=== PATIENT | male | born 1980 | race Caucasian/White ===

== ENCOUNTER 2023-06-25 19:47 | Inpatient (IN) | payer BC, SELFPAY ==
--- NOTE | ~2023-06-25 | XR_ITS ---
EXAMINATION: XR abdomen obstructive series DATE: 06/29/2023 12:44 INDICATION: Constipation. Generalized abdominal pain. TECHNIQUE: Upright and supine views of the abdomen on 4 radiographs were obtained. COMPARISON: CT abdomen and pelvis 06/25/2023 FINDINGS: There are no dilated loops of bowel. There is a small volume of stool in the colon. No free intraperitoneal gas. There are airspace opacities at right lung base. IMPRESSION: 1. Normal bowel gas pattern. 2. Airspace opacities at right lung base, consistent with atelectasis versus pneumonia. Reviewed, dictated and finalized at location A. S HUNTER IMPRESSION: 1. Normal bowel gas pattern. 2. Airspace opacities at right lung base, consistent with atelectasis versus pn eumonia.
--- NOTE | ~2023-06-25 | CT_ITS ---
EXAMINATION: CT abdomen pelvis w con DATE: 06/25/2023 22:16 INDICATION: Low abdominal pain. Flank pain. TECHNIQUE: Computed tomography (CT) of the abdomen and pelvis was performed with 100 mL Omnipaque 350 intravenous contrast. Automated exposure control and iterative reconstruction technique were employe d. The dose-length product was 1098.88 mGy-cm. COMPARISON: None. FINDINGS: The visualized portions of the lung bases demonstrate calcified lung nodules and calcified hilar lymph nodes, consistent with old granulomatous disease. There is a small right pleural effusion . There is mild atelectasis bilaterally. The heart size is normal. No pericardial effusion. The liver , gallbladder, spleen, pancreas, adrenal glands, and kidneys are normal. There is a large volume of s tool in the ascending colon. The appendix measures 8 mm in diameter. There is mild fat stranding jade cent to the appendix. There is intraluminal gas in the tip of the appendix. There are bilateral ingui nal hernias containing fat. There are no pathologically enlarged lymph nodes. There is no free intrap eritoneal fluid. IMPRESSION: 1. Small right pleural effusion. 2. Appendiceal diameter of 8 mm with mild fat stranding adjacent to the appendix, which is indetermin ate for appendicitis. Reviewed, dictated and finalized at location E. UGATED SHEET MATERIAL SHEETER IMPRESSION: 1. Small right pleural effusion. 2. Appendiceal diameter of 8 mm with mild fat stranding adjacent to the appendi x, which is indeterminate for appendicitis.
--- NOTE | ~2023-06-25 | XR_ITS ---
EXAMINATION: XR chest 2V DATE: 06/26/2023 11:03 INDICATION: Right pleural effusion TECHNIQUE: AP and lateral views of the chest are obtained. COMPARISON: CT, 06/25/2023 FINDINGS: There are minimal airspace opacities of the right lung base. There is a small right pleural effusion. No pneumothorax is identified. The cardiomediastinal silhouette is normal. There is mild t horacic spondylosis. IMPRESSION: 1. Small right pleural effusion with minimal right basilar atelectasis. Reviewed, dictated and finalized at location B. ING SERVICES MANAGER
[2023-06-25 20:02] VITALS: BP 135/78; PULSE 95; RESP 18; TEMP 37.4; O2SAT 97
[2023-06-25 20:20] LABS: Basophils Percent Auto 0.3 % (0.2-1.2); Hemoglobin 14.1 g/dL (14.0-18.0); Immature Granulocyte Absolute 0.05 K/mm3 (0.00-0.031); Immature Granulocyte Percent A 0.4 % (0-0.5); Lymphocytes Percent Auto 8.5 % (18.3-44.2); Mean Corpuscular Hemoglobin 29.3 pg (26-34); Mean Corpuscular Volume 91.3 fl (80-100); Mean Platelet Volume 9.6 fl (7.4-10.4); Monocytes Absolute Auto 0.8 K/mm3 (0.1-0.6); Monocytes Percent Auto 6.4 % (2.6-8.5); Neutrophils Absolute Auto 10.9 K/mm3 (1.3-6.7); Neutrophils Percent Auto 84.4 % (45.5-73.1); Platelet Count Result 301 k/mm3 (150-375); Red Blood Count 4.82 M/mm3 (4.6-6.20); Red Cell Distribution Width 11.9 % (11.5-14.5); White Blood Count 12.9 K/mm3 (4.5-10.0)
[2023-06-25 20:31] LABS: Alanine Aminotransferase 27 U/L (6-50); Albumin Level 4.2 g/dL (3.5-5.1); Alkaline Phosphatase 106 U/L (38-126); Anion Gap 10 mmol/L (8-16); Aspartate Amino Transferase 30 U/L (17-59); Bilirubin,Total 0.9 mg/dL (0.2-1.3); Blood Urea Nitrogen 16 mg/dL (9-20); Calcium 9.6 mg/dL (8.4-10.2); Carbon Dioxide 29 mmol/L (22-30); Chloride 100 mmol/L (98-107); Estimated CRCL calculation 125 ml/min; Estimated Glomerular Filt Rate > 60; Glucose 113 mg/dL (65-110); Potassium 4.1 mmol/L (3.4-5.0); Sodium 139 mmol/L (137-145)
[2023-06-25 20:36] LABS: Appearance Urine Cloudy (Clear); Bacteria Urine None Seen /hpf; Bilirubin Urine Negative (Negative); Blood Urine Negative (Negative); Color Urine Dark Yellow (Yellow); Glucose Urine UA Negative (Negative); Ketones Urine 2+ mg/dL (Negative); Leukocyte Esterase Ur Negative LEU/UL (Negative); Mucus Urine Present /lpf; Need Manual Microscopic Reviewed; Nitrate Urine Negative (Negative); Protein Urine Trace mg/dL (Negative); RBC Urine 0-2 /hpf (0-2); Specific Grav Ur 1.035 (1.001-1.035); Squamous Epithelial Cell Urine Few /hpf (Few); WBC Urine 0-5 /hpf; pH Urine 5.5 (5.0-9.0)
[2023-06-25 20:37] LABS: Add Urine Microscopic? YES
--- NOTE | 2023-06-25 21:35 | ED.GENADULT ---
HPI - General Adult General Chief complaint: Urogenital-Male Stated complaint: flank pain Time Seen by Provider: 06/25/23 20:18 Source: patient Mode of arrival: ambulatory Limitations: no limitations History of Present Illness HPI narrative: This is a 42-year-old male who presents to the ED with chief complaint of lower abdominal pain and lower back pain bilaterally for the past couple of weeks. Reports he was initially seen in urgent care and given prescriptions for muscle relaxers and steroids after possible pulled muscle. He states this seemed to help initially but pain is returning in the last couple of days. Describes the pain as a tightness across the lower abdomen that wraps around into the back bilaterally. Reports the right side of the lower back seems worse. States that he has not had a bowel movement in 2 days and is unsure if this is related. Denies slight difficulty with urination no dysuria, hematuria. Denies fevers, chills, nausea, vomiting, diarrhea, chest pain, shortness of breath, neck pain, headache. Related Data Allergies Allergy/AdvReac Type Severity Reaction Status Date / Time amoxicillin Allergy Rash Verified 06/25/23 20:20 Review of Systems Review of Systems: All systems as dictated in HPI Exam Narrative: GENERAL: Well-appearing, well-nourished, and in no acute distress. HEAD: Normocephalic, atraumatic. EYES: PERRLA and EOMI. ENT: Nares clear, no rhinorrhea or epistaxis. Mucous membranes moist. Oropharynx without tonsillar hypertrophy exudate or other lesions. NECK: Supple. No adenopathy or masses. CHEST: No respiratory distress. Clear to auscultation. No wheezes rales or rhonchi HEART: Regular rate and rhythm. No murmur heard. Normal peripheral pulses. ABDOMEN: Negative flank tenderness bilaterally. Mild tenderness across the lower abdomen. Soft, nondistended, normal active bowel sounds. Negative Sosa sign. Obturator sign positive. MSK: Difficulty with transitioning from chair to bed due to pain. He moves slowly. Bilateral paraspinal lumbar tenderness noted. No midline tenderness throughout the spine. SKIN: Warm, dry, no rash. NEURO: Alert and oriented x3. No focal deficits. PSYCH: Normal mood and affect. Course Vital Signs Vital signs: Vital Signs Temperature 99.3 F 06/25/23 20:02 Pulse Rate 95 06/25/23 20:02 Respiratory Rate 18 06/25/23 20:02 Blood Pressure 135/78 06/25/23 20:02 Pulse Oximetry 97 06/25/23 20:02 Oxygen Delivery Room Air 06/25/23 20:02 Temperature 99.3 F 06/25/23 20:02 Pulse Rate 95 06/25/23 20:02 Respiratory Rate 18 06/25/23 20:02 Blood Pressure 135/78 06/25/23 20:02 Pulse Oximetry 97 06/25/23 20:02 Oxygen Delivery Room Air 06/25/23 20:02 Medical Decision Making MDM Narrative Medical decision making narrative: This is a 42-year-old male who presents to the ED with chief complaint of lower abdominal pain for the past week and a half and worse in the past 2 days. Vitals are largely benign, however his temperature is slightly elevated at 99.5. Exam reveals lower abdominal tenderness across the abdomen. Abdomen is soft. Obturator sign positive. CBC shows slightly elevated white count at 13,000. CMP unremarkable. UA shows 2+ ketones but otherwise benign. CT abdomen pelvis with IV contrast: 1. Small right pleural effusion. 2. Appendiceal diameter of 8 mm with mild fat stranding adjacent to the appendix, which is indeterminate for appendicitis.. Patient is doing better with morphine and Zofran here but he is still in pain. Discussed this case with Dr. Rm (general surgery) who agrees to admit the patient under surgical services. Recommends keeping patient n.p.o. and starting Invanz for antibiotics. He will see the patient tomorrow. Exam is unchanged at the time of admission. Patient will be admitted in stable condition. Patient was informed on the plan and he is agreeable at this time. Vital Sign
[2023-06-25] MEDS: ONDANSETRON INJ 4 MG/2 ML VIAL IV PUSH (21:47)
[2023-06-25] MEDS: MORPHINE SULFATE (*CRX) 4 MG/ML INJ IV PUSH (21:48)
[2023-06-25 21:58] LABS: Lipase 62 U/L (23-300)
[2023-06-25] MEDS: ERTAPENEM 1 GM/NS 50 ML 1 GM/50 ML BAG IVPB (23:00)
[2023-06-26] VITALS (8 sets, daily range): BP systolic 135–148; BP diastolic 73–82; PULSE 87–107; RESP 15–22; TEMP 37.1–37.3; O2SAT 95–100; BMI 33.0
[2023-06-26] MEDS: SODIUM CHLORIDE 0.9% IV 1,000 ML 125 ML IV CONT ×3 (00:54→21:00)
[2023-06-26] MEDS: HYDROmorphone HCL INJ (*CRX) 1 MG/ML SYR 0.5 MG IV PUSH ×4 (00:54→13:34)
--- NOTE | 2023-06-26 05:37 | ADMGEN ---
This patient, Wellington Palomo, was admitted to [facility] Surg Room 316-01. Patient/family oriented to hospital policies and general routines including ID bracelet, bed and alarms, visiting hours, pain management, procedures, bathroom and other care routines, personal items, smoking policy, room service/diet, and visiting hours. Information on how to activate the Rapid Response Team has been discussed. Patient/Family are encouraged to report perceived risks to care and to ask questions if they do not understand what they are told or what they should do.
[2023-06-26 09:58] LABS: Hematocrit 41.3 % (42.0-52.0); Hemoglobin 13.4 g/dL (14.0-18.0); Mean Corpuscular HGB Conc 32.4 g/dl (32-36); Mean Corpuscular Hemoglobin 29.5 pg (26-34); Mean Platelet Volume 9.9 fl (7.4-10.4); Platelet Count Result 259 k/mm3 (150-375); Red Blood Count 4.54 M/mm3 (4.6-6.20)
[2023-06-26 10:13] LABS: Alanine Aminotransferase 23 U/L (6-50); Albumin Level 3.9 g/dL (3.5-5.1); Alkaline Phosphatase 94 U/L (38-126); Anion Gap 8 mmol/L (8-16); Aspartate Amino Transferase 20 U/L (17-59); Bilirubin,Total 0.9 mg/dL (0.2-1.3); Blood Urea Nitrogen 14 mg/dL (9-20); Carbon Dioxide 28 mmol/L (22-30); Chloride 102 mmol/L (98-107); Estimated CRCL calculation 158 ml/min; Estimated Glomerular Filt Rate > 60; Glucose 115 mg/dL (65-110); Lipase 39 U/L (23-300); Sodium 138 mmol/L (137-145)
[2023-06-26 10:23] LABS: CRP 18.7 mg/dL (<1.0)
[2023-06-26 10:38] LABS: Erythrocyte Sedimentation Rate 76 mm/hr (0-20)
--- NOTE | 2023-06-26 10:47 | PM.IMHP ---
H&P: HPI History of Present Illness Date/Time: 06/26/23 10:47 Chief Complaint: Back pain, RLQ pain Narrative: This is a 42 yo man who presented to the ED last night with multiple complaints. He began experiencing low back pain about 3 weeks ago. This was noted shortly after completing a workout at the gym. Over the next couple days the low back pain became worse. He went to urgent care and was given muscle relaxers and steroids. He was constipated at that time and went 9 days without a BM. Since Thursday, he began experiencing lower abdominal pain as well. The pain has been on both sides of the back, but more predominantly on the right side of the abdomen. Pain is radiating up toward the right chest and he does have worsening pain with deep inspiration. He denies cough, fever, nausea or vomiting. He did move his bowels for a few days but now it has been another 2-3 days since his last BM. In the ED, he was noted to have a slightly elevated WBC and CT showed an 8mm Appendix with mild surrounding fatty infiltration, indeterminant for acute appendicitis. He was started on Invanz and admitted for further workup and treatment. Review of Systems Review of Systems: All systems reviewed & are unremarkable except as noted in HPI and below Constitutional: Constitutional: Denies chills and Denies fever(s) Eyes: Eyes: Denies change in vision ENT: Denies hearing loss, Denies neck pain and Denies sore throat Cardiovascular: Cardiovascular: Denies chest pain and Denies dyspnea Respiratory: Respiratory: Denies cough, Denies dyspnea and Denies wheezing Gastrointestinal: Gastrointestinal: Reports as per HPI Genitourinary: Genitourinary: Denies hematuria and Denies dysuria Musculoskeletal: Musculoskeletal: Reports back pain (low back), Denies arthralgias, Denies joint swelling and Denies neck pain Allergic/Immunologic: Allergic/Immunologic: Denies wheezing PMFSH Past Medical History Medical History (Updated 06/26/23 @ 11:20 by Ravi Rm DO) No significant past medical history Surgical History Surgical History (Updated 06/26/23 @ 10:55 by Ravi Rm DO) No pertinent past surgical history Social History Social History Smoking status: Never smoker Lack of Transportation: No Lack of Food: Never True Current Housing: I Have Housing Concerned About Future Housing: No Difficulty Paying Gas/Electric Bills: No Difficulty Paying for Meds: No Currently Unemployed: No Education: High School Diploma/GED Difficulty w/ Childcare or Family Care: No Spiritual care concerns: No Meds Home Medications and Allergies Home Medications Medication Instructions Recorded Confirmed Type cetirizine 10 mg tablet (Zyrtec) 10 mg PO DAILY seasonal allergies 06/26/23 06/26/23 History Allergies Allergy/AdvReac Type Severity Reaction Status Date / Time amoxicillin Allergy Rash Verified 06/25/23 20:20 Vital Signs Vital Signs - 24 hr 06/25/23 20:02 06/26/23 01:00 06/26/23 02:15 Temperature 37.4 C Pulse Rate 95 87 90 Respiratory Rate 18 15 15 Blood Pressure 135/78 135/80 137/80 Pulse Oximetry 97 100 98 Oxygen Delivery Room Air 06/26/23 03:28 06/26/23 05:08 06/26/23 06:00 Temperature 37.3 C Pulse Rate 95 93 101 H Respiratory Rate 16 16 16 Blood Pressure 140/79 140/79 148/82 H Pulse Oximetry 95 95 96 Oxygen Delivery Exam Const: General: alert; No acute distress Orientation/consciousness: patient oriented x3 Limitations: no limitations HENMT: Head: normocephalic and atraumatic Ears: hearing grossly normal bilaterally Face/Nose/Sinus: Normal external nose present and Normal nares present Mouth: Yes Normal oral and palatal mucosa present and Yes moist mucous membranes Eyes: General: appearance normal, both eyes and all related structures Conjunctivae: conjunctivae normal Sclera: sclerae normal Pupils: Eq
[2023-06-26] MEDS: polyethylene glycoL 3350 17 GM POWD.PACK PO (11:57)
[2023-06-26] MEDS: BISACODYL 5 MG TABLET EC 10 MG PO (11:57)
--- NOTE | 2023-06-26 15:41 | PM.IMHP ---
H&P: HPI History of Present Illness Date/Time: 06/26/23 15:00 [facility] Past Medical History Medical History (Updated 06/26/23 @ 11:20 by Ravi Rm DO) No significant past medical history Surgical History Surgical History (Updated 06/26/23 @ 15:41 by Quin Pratt PA-C) History of vasectomy Social History Social History Smoking status: Never smoker Lack of Transportation: No Lack of Food: Never True Current Housing: I Have Housing Concerned About Future Housing: No Difficulty Paying Gas/Electric Bills: No Difficulty Paying for Meds: No Currently Unemployed: No Education: High School Diploma/GED Difficulty w/ Childcare or Family Care: No Spiritual care concerns: No Meds Home Medications and Allergies Home Medications Medication Instructions Recorded Confirmed Type cetirizine 10 mg tablet (Zyrtec) 10 mg PO DAILY seasonal allergies 06/26/23 06/26/23 History Allergies Allergy/AdvReac Type Severity Reaction Status Date / Time amoxicillin Allergy Rash Verified 06/25/23 20:20 Vital Signs Vital Signs - 24 hr 06/25/23 20:02 06/26/23 01:00 06/26/23 02:15 Temperature 99.3 F Pulse Rate 95 87 90 Respiratory Rate 18 15 15 Blood Pressure 135/78 135/80 137/80 Pulse Oximetry 97 100 98 Oxygen Delivery Room Air 06/26/23 03:28 06/26/23 05:08 06/26/23 06:00 Temperature 99.1 F Pulse Rate 95 93 101 H Respiratory Rate 16 16 16 Blood Pressure 140/79 140/79 148/82 H Pulse Oximetry 95 95 96 Oxygen Delivery 06/26/23 08:00 06/26/23 14:00 Temperature 99.1 F Pulse Rate 95 Respiratory Rate 16 Blood Pressure 143/73 H Pulse Oximetry 98 Oxygen Delivery Room Air H&P: Results Labs Labs: Short CBC 06/25/23 06/26/23 Range/Units 20:13 09:51 WBC 12.9 H 12.0 H (4.5-10.0) K/mm3 Hgb 14.1 13.4 L (14.0-18.0) g/dL Hct 44.0 41.3 L (42.0-52.0) % Plt Count 301 259 (150-375) k/mm3 BMP 06/25/23 06/26/23 20:13 09:51 Sodium 139 138 Potassium 4.1 4.0 Chloride 100 102 Carbon Dioxide 29 28 BUN 16 14 Creatinine 0.90 0.70 Glucose 113 H 115 H Calcium 9.6 9.0 Liver Function 06/25/23 06/26/23 Range/Units 20:13 09:51 Total Bilirubin 0.9 0.9 (0.2-1.3) mg/dL AST 30 20 (17-59) U/L ALT 27 23 (6-50) U/L Alkaline Phosphatase 106 94 (38-126) U/L Albumin 4.2 3.9 (3.5-5.1) g/dL Urine 06/25/23 Range/Units 20:18 Urine Color Dark yellow (Yellow) Urine Appearance Cloudy H (Clear) Urine pH 5.5 (5.0-9.0) Ur Specific [place] 1.035 (1.001-1.035) Urine Protein Trace (Negative) mg/dL Urine Glucose (UA) Negative (Negative) mg/dL
[2023-06-26] MEDS: HYDROmorphone HCL INJ (*CRX) 1 MG/ML SYR IV PUSH ×2 (15:51→20:06)
[2023-06-26] MEDS: BISACODYL 10 MG SUPPOSITORY RECTAL (15:53)
[2023-06-26] MEDS: diazePAM (*CRX) 5 MG TABLET PO ×2 (15:56→20:21)
[2023-06-26] MEDS: ERTAPENEM 1 GM/NS 50 ML 1 GM/50 ML BAG IVPB (20:05)
--- NOTE | 2023-06-26 23:35 | WPDCN ---
Assessment and Plan Assessment and plan (1) Lower abdominal pain: Code(s): R10.30 - Lower abdominal pain, unspecified Status: Acute Assessment and Plan: Likely due to a combination of constipation (he has not had a good bowel movement for nearly 10 days and a large amount of stool was noted in the colon on CT) and possible early appendicitis. Analgesics available as needed however we did discuss that these can worsen constipation and hopefully these can be used very judiciously. Continue MiraLax and bisacodyl. If no bowel movement by tomorrow afternoon he may very well benefit from an enema. Continue ertapenem for possible appendicitis and serial abdominal exams. (2) Low back pain: Qualifiers: Chronicity: acute Back pain laterality: bilateral Sciatica presence: unspecified whether sciatica present Qualified Code(s): M54.50 - Low back pain, unspecified Code(s): M54.50 - Low back pain, unspecified Status: Acute Assessment and Plan: Patient continues to have pain related to recent lumbar muscle strain. He has no radicular symptoms or findings concerning for cord compression. Diazepam as needed for pain. He would benefit from PT/OT however will hold on that at this time as his abdominal pain is much worse with movement. (3) Constipation: Qualifiers: Constipation type: unspecified constipation type Qualified Code(s): K59.00 - Constipation, unspecified Code(s): K59.00 - Constipation, unspecified Status: Acute Assessment and Plan: Continue MiraLax and Dulcolax as detailed above. Consider enema if no good results by tomorrow afternoon. (4) Pleural effusion, right: Code(s): J90 - Pleural effusion, not elsewhere classified Status: Acute Assessment and Plan: An incidental, small right pleural effusion was noted on CT. Etiology is not entirely clear but he is asymptomatic and the fluid is not large enough to sample. This can be followed as an outpatient with suggested repeat radiographs in the coming weeks. Should he become symptomatic (chest pain, pleuritic pain, shortness a breath, cough, etc.) a chest CT may be beneficial as would diagnostic thoracentesis. Plan Thank you for allowing us to participate in this patient's care. Please do not hesitate to contact us with any questions. HPI Data of Consult Date/Time: 06/26/23 23:35 Requesting Physician: Ravi Rm DO Consult Narrative Reason for consult: Back and abdominal pain. Narrative: This is a very pleasant and previously healthy 42-year-old male whom the hospitalist service has been consulted for our opinion regarding back and abdominal pain. The patient provides the following history. Several weeks ago he was seen at urgent care with low back pain at which time he was prescribed muscle relaxer and a steroid pack. 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 The pain eventually improved however he started having problems with constipation and did not have a bowel movement for upwards of 9 days. Since that time he has had increasing pain, mainly throughout the lower abdomen however it does wrap around to the low back. He has been taking ibuprofen for the discomfort which seems to help. He has been taking p.o. Dulcolax with only minor results couple of days ago. This evening he was given a suppository and he has passed quite a bit of gas but he has not had a bowel movement as of yet. In any event, he came to the ED last night due to worsening pain which has been pretty constant for the last several days. He describes a severe spasm or ?locked up? pain diffusely throughout the low back with discomfort throughout the lower abdomen as well. His low back pain is worse with movement and his abdominal pain is worse with bending forward and palpation. Initial workup in the ED was significant
[2023-06-27] MEDS: HYDROmorphone HCL INJ (*CRX) 1 MG/ML SYR IV PUSH ×6 (00:41→23:23)
[2023-06-27 05:44] VITALS: BP 133/70; PULSE 101; RESP 18; TEMP 37; O2SAT 93
[2023-06-27] MEDS: SODIUM CHLORIDE 0.9% IV 1,000 ML 125 ML IV CONT (06:13)
[2023-06-27 06:34] LABS: Basophils Absolute Auto 0.1 K/mm3 (0.0-0.1); Basophils Percent Auto 0.4 % (0.2-1.2); Eosinophils Percent Auto 0.1 % (0-4.4); Hematocrit 40.4 % (42.0-52.0); Hemoglobin 12.8 g/dL (14.0-18.0); Immature Granulocyte Absolute 0.07 K/mm3 (0.00-0.031); Immature Granulocyte Percent A 0.6 % (0-0.5); Lymphocytes Absolute Auto 1.01 K/mm3 (0.9-3.2); Lymphocytes Percent Auto 8.5 % (18.3-44.2); Mean Corpuscular HGB Conc 31.7 g/dl (32-36); Mean Corpuscular Hemoglobin 29.3 pg (26-34); Mean Corpuscular Volume 92.4 fl (80-100); Mean Platelet Volume 9.9 fl (7.4-10.4); Monocytes Absolute Auto 1.2 K/mm3 (0.1-0.6); Neutrophils Absolute Auto 9.6 K/mm3 (1.3-6.7); Neutrophils Percent Auto 80.4 % (45.5-73.1); Platelet Count Result 247 k/mm3 (150-375); Red Blood Count 4.37 M/mm3 (4.6-6.20); Red Cell Distribution Width 11.8 % (11.5-14.5)
[2023-06-27 06:44] LABS: Magnesium 1.9 mg/dL (1.6-2.3)
[2023-06-27 06:48] LABS: Anion Gap 6 mmol/L (8-16); Blood Urea Nitrogen 11 mg/dL (9-20); Calcium 8.6 mg/dL (8.4-10.2); Carbon Dioxide 29 mmol/L (22-30); Chloride 100 mmol/L (98-107); Estimated CRCL calculation 141 ml/min; Estimated Glomerular Filt Rate > 60; Glucose 112 mg/dL (65-110); Potassium 4.2 mmol/L (3.4-5.0); Sodium 135 mmol/L (137-145)
[2023-06-27 06:57] LABS: CRP 23.8 mg/dL (<1.0)
[2023-06-27 07:20] LABS: Thyroid Stimulating Hormone Reflex 0.761 uIU/mL (0.465-4.68)
[2023-06-27] MEDS: polyethylene glycoL 3350 17 GM POWD.PACK PO (08:54)
--- NOTE | 2023-06-27 09:11 | PM.PNGS ---
Progress Note: A&P Assessment and Plan (1) Abdominal pain, acute, right lower quadrant: Code(s): R10.31 - Right lower quadrant pain Status: Acute Assessment and Plan: Seeming less likely to be appendicitis given improvement of symptoms after passing flatus. Continue Invanz at this point. Will give Mag Citrate today to stimulate bowels more. Continue clear liquids until bowels moving better. (2) Constipation: Qualifiers: Constipation type: unspecified constipation type Qualified Code(s): K59.00 - Constipation, unspecified Code(s): K59.00 - Constipation, unspecified Status: Acute (3) Low back pain: Qualifiers: Chronicity: acute Back pain laterality: bilateral Sciatica presence: unspecified whether sciatica present Qualified Code(s): M54.50 - Low back pain, unspecified Code(s): M54.50 - Low back pain, unspecified Status: Acute Subjective Subjective Date/Time Seen: 06/27/23 09:11 Interval history: Abdominal pain improved after passing some flatus. No BM yet. Mostly complaining of low back pain this morning. Diazepam not helping much yet. No pains shooting down legs. Exam GI: Inspection: non-distended GI Palp: Yes Soft to palpation, Yes Tenderness to palpation present (GI) (minimal RLQ), No Guarding due to palpation present (GI) and No Rebound tenderness present Auscultation: normal bowel sounds Objective Data Vital Signs Vital Signs: Vital Signs - 24 hr 06/26/23 14:00 06/26/23 20:00 06/26/23 22:00 Temperature 37.3 C 37.1 C Pulse Rate 95 107 H Respiratory Rate 16 22 H Blood Pressure 143/73 H 135/81 Pulse Oximetry 98 98 96 Oxygen Delivery Room Air 06/27/23 05:44 Temperature 37.0 C Pulse Rate 101 H Respiratory Rate 18 Blood Pressure 133/70 Pulse Oximetry 93 Oxygen Delivery Intake/Output Intake/Output: Intake & Output 06/24/23 06/25/23 06/26/23 06/27/23 23:59 23:59 23:59 23:59 Intake Total 2300 1000 Balance 2300 1000 Meds/Results Medications: Active Medications Generic Name Dose Route Start Last Admin Trade Name Freq PRN Reason Stop Dose Admin Acetaminophen 1,000 mg 06/26/23 14:07 Acetaminophen 500 Mg Tablet PO Q6H PRN Mild Pain (1-3) or Fever Diazepam 5 mg 06/26/23 09:32 06/26/23 20:21 Diazepam (*Crx) 5 Mg Tablet PO 5 mg BID PRN Administration Muscle Spasm Hydromorphone HCl 0.5 mg 06/26/23 14:07 Hydromorphone Hcl Inj (*Crx) 1 Mg/Ml Syr IV PUSH Q2H PRN Pain Rated 4-6 Hydromorphone HCl 1 mg 06/26/23 14:07 06/27/23 08:52 Hydromorphone Hcl Inj (*Crx) 1 Mg/Ml Syr IV PUSH 1 mg Q3H PRN Administration Pain Rated 7-10 Sodium Chloride 1,000 mls @ 125 mls/hr 06/25/23 22:50 06/27/23 06:13 Normal Saline Iv IV CONT 125 mls/hr .Q8H EDISON Administration Ertapenem 1 gm in 50 mls @ 100 mls/hr 06/26/23 21:00 06/26/23 20:35 Invanz 1 Gm/Ns 50 Ml IVPB Infused Q24H EDISON Infusion Magnesium Citrate 150 ml 06/27/23 09:10 Magnesium Citrate 300 Ml Btl PO 06/27/23 09:11 ONCE ONE Ondansetron HCl 4 mg 06/25/23 22:46 Ondansetron Inj 4 Mg/2 Ml Vial IV PUSH Q4H PRN Nausea Polyethylene Glycol 17 gm 06/26/23 09:35 06/27/23 08:54 Polyethylene Glycol 3350 17 Gm Powd.Pack PO 17 gm QAM EDISON Administration Radiology Results: ITS Impressions Abdomen/Pelvis CT 06/25/23 22:18 IMPRESSION: 1. Small right pleural effusion. 2. Appendiceal diameter of 8 mm with mild fat stranding adjacent to the appendix, which is indeterminate for appendicitis. Chest X-Ray 06/26/23 11:23 IMPRESSION: 1. Small right pleural effusion with minimal right basilar atelectasis. Labs Labs: Laboratory Results - last 24 hr 06/26/23 06/27/23 06/27/23 09:51 06:17 06:17 WBC 12.0 H 12.0 H RBC 4.54 L 4.37 L Hgb 13.4 L 12.8 L Hct 41.3 L 40.4 L MCV 91.0 92.4 MCH 29.5 29.[address]
[2023-06-27] MEDS: MAGNESIUM CITRATE 300 ML BTL 150 ML PO (11:32)
[2023-06-27 14:00] VITALS: BP 132/80; PULSE 84; RESP 20; TEMP 36.7; O2SAT 98
--- NOTE | 2023-06-27 15:21 | PM.IMPN ---
Progress Note: A&P Assessment and Plan (1) Lower abdominal pain: Code(s): R10.30 - Lower abdominal pain, unspecified Status: Acute Assessment and Plan: Likely due to a combination of constipation, no BM for 10 days and a large amount of stool was noted in the colon on CT Analgesics available Clear liquids only for now Continue MiraLax and starting mag citrate today, could benefit from enema if this does not help. Continue ertapenem for possible appendicitis and serial abdominal exams. (2) Low back pain: Qualifiers: Chronicity: acute Back pain laterality: bilateral Sciatica presence: unspecified whether sciatica present Qualified Code(s): M54.50 - Low back pain, unspecified Code(s): M54.50 - Low back pain, unspecified Status: Acute Assessment and Plan: Patient continues to have pain related to recent lumbar muscle strain. He has no radicular symptoms or findings concerning for cord compression. Diazepam as needed for pain. He would benefit from PT/OT when pain resolves in abdomen (3) Constipation: Qualifiers: Constipation type: unspecified constipation type Qualified Code(s): K59.00 - Constipation, unspecified Code(s): K59.00 - Constipation, unspecified Status: Acute Assessment and Plan: Continue MiraLax and Dulcolax as detailed above. Mag citrate added per GI (4) Pleural effusion, right: Code(s): J90 - Pleural effusion, not elsewhere classified Status: Acute Assessment and Plan: An incidental, small right pleural effusion was noted on CT. Etiology is not entirely clear but he is asymptomatic and the fluid is not large enough to sample. This can be followed as an outpatient with suggested repeat radiographs in the coming weeks. Should he become symptomatic (chest pain, pleuritic pain, shortness a breath, cough, etc.) a chest CT may be beneficial as would diagnostic thoracentesis. Plan Thank you for allowing us to participate in this patient's care. Please do not hesitate to contact us with any questions. Subjective Date/time seen: 06/27/23 15:21 Interval history: Patient is a 42 YO male admitted for lower abdominal pain. He is bring followed by surgery for possible appendicitis although his clinical presentation correlates more with constipation. He has not had a BM in 10 days. He reports some improvement in his pain after passing gas earlier today. He will try some mag citrate today and will consider enema if this does not work. He is currently still on clears, but resting comfortably in bed. Exam Narrative: General: Well-developed, nontoxic-appearing male supine in bed in moderate pain. Weight: 113.6 kg. BMI: 33.0. HEENT: PERRL, EOMI. Sclera anicteric. Oral mucosa moist. Neck: Supple. Respiratory: Lungs are clear to auscultation bilaterally. Cardiovascular: Regular rate and rhythm with S1-S2. Gastrointestinal: Abdomen is soft and nondistended with positive bowel sounds. He is tender to palpation in the right lower quadrant and suprapubic region without voluntary guarding or rebound tenderness. No CVA tenderness. Spine: No midline vertebral tenderness. He is somewhat tender to palpation over the paraspinous muscles in the lumbar region. Increased pain in the right lower quadrant with right leg raise. Skin: Warm and dry. Extremities: No cyanosis, clubbing, or edema. Radial and pedal pulses intact. Neurological: Alert. Cranial nerves 2-12 are grossly intact. Sensation intact throughout the lower extremities. No gross focal deficits to casual conversation. Psychiatric: Pleasant and cooperative with normal mood and affect. Judgment and insight intact. Objective Data Vital Signs Vital Signs: Vital Signs - 24 hr 06/26/23 20:00 06/26/23 22:00 06/27/23 05:44 Temperature 98.8 F 98.6 F Pulse Rate 107 H 101 H Respiratory Rate 22 H 18 Blood Pressure 135/81 133/70 Pulse Oximetry 98 96 93 Oxygen
[2023-06-27] MEDS: BISACODYL 10 MG SUPPOSITORY RECTAL (19:53)
[2023-06-27 20:00] VITALS: O2SAT 95
[2023-06-27] MEDS: ERTAPENEM 1 GM/NS 50 ML 1 GM/50 ML BAG IVPB (21:44)
[2023-06-27 21:55] VITALS: BP 130/82; PULSE 99; RESP 16; TEMP 36.7; O2SAT 95
[2023-06-28] MEDS: HYDROmorphone HCL INJ (*CRX) 1 MG/ML SYR IV PUSH ×2 (03:34→12:21)
[2023-06-28] MEDS: SODIUM CHLORIDE 0.9% IV 1,000 ML 50 ML IV CONT (03:35)
[2023-06-28 06:00] VITALS: BP 146/95; PULSE 101; RESP 16; TEMP 36.1; O2SAT 96
[2023-06-28] MEDS: ACETAMINOPHEN 500 MG TABLET 1000 MG PO (06:05)
[2023-06-28 08:06] LABS: Hematocrit 39.9 % (42.0-52.0); Hemoglobin 12.9 g/dL (14.0-18.0); Mean Corpuscular HGB Conc 32.3 g/dl (32-36); Mean Corpuscular Hemoglobin 29.2 pg (26-34); Mean Corpuscular Volume 90.3 fl (80-100); Mean Platelet Volume 9.7 fl (7.4-10.4); Platelet Count Result 249 k/mm3 (150-375); Red Blood Count 4.42 M/mm3 (4.6-6.20); Red Cell Distribution Width 11.9 % (11.5-14.5); White Blood Count 9.7 K/mm3 (4.5-10.0)
[2023-06-28] MEDS: polyethylene glycoL 3350 17 GM POWD.PACK PO (08:16)
[2023-06-28 08:23] LABS: Anion Gap 10 mmol/L (8-16); Blood Urea Nitrogen 10 mg/dL (9-20); Calcium 8.7 mg/dL (8.4-10.2); Carbon Dioxide 28 mmol/L (22-30); Chloride 96 mmol/L (98-107); Estimated CRCL calculation 182 ml/min; Estimated Glomerular Filt Rate > 60; Glucose 109 mg/dL (65-110); Potassium 4.1 mmol/L (3.4-5.0); Sodium 134 mmol/L (137-145)
[2023-06-28 08:36] LABS: CRP 25.2 mg/dL (<1.0)
[2023-06-28] MEDS: MAGNESIUM CITRATE 300 ML BTL 150 ML PO (09:24)
--- NOTE | 2023-06-28 12:30 | PM.IMPN ---
Progress Note: A&P Assessment and Plan (1) Lower abdominal pain: Code(s): R10.30 - Lower abdominal pain, unspecified Status: Acute Assessment and Plan: Likely due to a combination of constipation, no BM for 10 days and a large amount of stool was noted in the colon on CT Analgesics available Clear liquids only for now 2 small BM overnight, Continue MiraLax and mag citrate, could benefit from enema if this does not help. Continue ertapenem for possible appendicitis and serial abdominal exams. (2) Low back pain: Qualifiers: Chronicity: acute Back pain laterality: bilateral Sciatica presence: unspecified whether sciatica present Qualified Code(s): M54.50 - Low back pain, unspecified Code(s): M54.50 - Low back pain, unspecified Status: Acute Assessment and Plan: Patient continues to have pain related to recent lumbar muscle strain. He has no radicular symptoms or findings concerning for cord compression. Diazepam as needed for pain. He would benefit from PT/OT when pain resolves in abdomen (3) Constipation: Qualifiers: Constipation type: unspecified constipation type Qualified Code(s): K59.00 - Constipation, unspecified Code(s): K59.00 - Constipation, unspecified Status: Acute Assessment and Plan: Continue MiraLax, mag citrate and Dulcolax as detailed above. (4) Pleural effusion, right: Code(s): J90 - Pleural effusion, not elsewhere classified Status: Acute Assessment and Plan: An incidental, small right pleural effusion was noted on CT. Etiology is not entirely clear but he is asymptomatic and the fluid is not large enough to sample. This can be followed as an outpatient with suggested repeat radiographs in the coming weeks. Should he become symptomatic (chest pain, pleuritic pain, shortness a breath, cough, etc.) a chest CT may be beneficial as would diagnostic thoracentesis. Plan Thank you for allowing us to participate in this patient's care. Please do not hesitate to contact us with any questions. Subjective Date/time seen: 06/28/23 12:30 Interval history: Patient is a 42 YO male admitted for lower abdominal pain. He is bring followed by surgery for possible appendicitis although his clinical presentation correlates more with constipation. He reports having 2 small BM since starting the mag citrate, but feels like there is more. His pain was much relieved after his BM. Surgery recommends more mag citrate today and monitor. He is currently still on clears, but resting comfortably in bed. Encouraged walking in the halls to help facilitate things and could help his back pain as well. Review of Systems Review of Systems: Twelve systems were reviewed and are negative except for as per HPI. Exam Narrative: General: Well-developed, nontoxic-appearing male supine in bed in moderate pain. Weight: 113.6 kg. BMI: 33.0. HEENT: PERRL, EOMI. Sclera anicteric. Oral mucosa moist. Neck: Supple. Respiratory: Lungs are clear to auscultation bilaterally. Cardiovascular: Regular rate and rhythm with S1-S2. Gastrointestinal: Abdomen is soft and nondistended with positive bowel sounds. He is slightly tender to palpation in the right lower quadrant and suprapubic region without voluntary guarding or rebound tenderness. No CVA tenderness. Spine: No midline vertebral tenderness. He is somewhat tender to palpation over the paraspinous muscles in the lumbar region. Increased pain in the right lower quadrant with right leg raise. Skin: Warm and dry. Extremities: No cyanosis, clubbing, or edema. Radial and pedal pulses intact. Neurological: Alert. Cranial nerves 2-12 are grossly intact. Sensation intact throughout the lower extremities. No gross focal deficits to casual conversation. Psychiatric: Pleasant and cooperative with normal mood and affect. Judgment and insight intact. Objective Data Vital Signs Vital Sign
[2023-06-28] MEDS: ONDANSETRON INJ 4 MG/2 ML VIAL IV PUSH (13:12)
[2023-06-28 14:00] VITALS: BP 141/67; PULSE 83; RESP 18; TEMP 37; O2SAT 98
--- NOTE | 2023-06-28 14:48 | PM.PNGS ---
Progress Note: A&P Assessment and Plan (1) Lower abdominal pain: Code(s): R10.30 - Lower abdominal pain, unspecified Status: Acute Assessment and Plan: Symptoms continuing to improve. Advance to regular diet as tolerated. Will get abdominal xray tomorrow. Start Metamucil tomorrow. Invanz continued for possible appendicitis--might be able to discontinue on discharge since symptoms resolved and WBC normalized. (2) Constipation: Qualifiers: Constipation type: unspecified constipation type Qualified Code(s): K59.00 - Constipation, unspecified Code(s): K59.00 - Constipation, unspecified Status: Acute Assessment and Plan: Patient might benefit from colonoscopy as an outpatient. Can make arrangements for GI referral as an outpatient. (3) Low back pain: Qualifiers: Chronicity: acute Back pain laterality: bilateral Sciatica presence: unspecified whether sciatica present Qualified Code(s): M54.50 - Low back pain, unspecified Code(s): M54.50 - Low back pain, unspecified Status: Acute Assessment and Plan: Patient did not have much improvement with diazepam. Will try carisoprodol today. Subjective Subjective Date/Time Seen: 06/28/23 14:48 Interval history: Bowels moving. This helped with abdominal pain and back pain. Tolerating full liquids. Exam GI: Inspection: non-distended GI Palp: Yes Soft to palpation, No Tenderness to palpation present (GI), No Guarding due to palpation present (GI) and No Rebound tenderness present Percussion: Yes normal to percussion Auscultation: normal bowel sounds Objective Data Vital Signs Vital Signs: Vital Signs - 24 hr 06/27/23 20:00 06/27/23 21:55 06/28/23 06:00 Temperature 36.7 C 36.1 C L Pulse Rate 99 101 H Respiratory Rate 16 16 Blood Pressure 130/82 146/95 H Pulse Oximetry 95 95 96 Oxygen Delivery Room Air 06/28/23 08:00 06/28/23 14:00 Temperature 37.0 C Pulse Rate 83 Respiratory Rate 18 Blood Pressure 141/67 H Pulse Oximetry 98 Oxygen Delivery Room Air Intake/Output Intake/Output: Intake & Output 06/25/23 06/26/23 06/27/23 06/28/23 23:59 23:59 23:59 23:59 Intake Total 2300 2286 Balance 2300 2286 Meds/Results Medications: Active Medications Generic Name Dose Route Start Last Admin Trade Name Freq PRN Reason Stop Dose Admin Acetaminophen 1,000 mg 06/26/23 14:07 06/28/23 06:05 Acetaminophen 500 Mg Tablet PO 1,000 mg Q6H PRN Administration Mild Pain (1-3) or Fever Hydrocodone Bitart/Acetaminophen 1 tab 06/28/23 14:44 Hydrocodone/Acetaminophen (*Crx) 7.5-325 Mg Tablet PO Q6H PRN Pain Rated 7-10 Carisoprodol 350 mg 06/28/23 17:00 Carisoprodol (*Crx) 350 Mg Tablet PO QID EDISON Ertapenem 1 gm in 50 mls @ 100 mls/hr 06/26/23 21:00 06/27/23 22:14 Invanz 1 Gm/Ns 50 Ml IVPB Infused Q24H EDISON Infusion Ibuprofen 600 mg 06/28/23 14:44 Ibuprofen 600 Mg Tablet PO Q6H PRN Pain Rated 4-6 Ondansetron HCl 4 mg 06/25/23 22:46 06/28/23 13:12 Ondansetron Inj 4 Mg/2 Ml Vial IV PUSH 4 mg Q4H PRN Administration Nausea Psyllium Hydrophilic Mucilloid 1 packet 06/29/23 09:00 Psyllium Powder Packet PO Q12HR [facility] Radiology Results: ITS Impressions Abdomen/Pelvis CT 06/25/23 22:18 IMPRESSION: 1. Small right pleural effusion. 2. Appendiceal diameter of 8 mm with mild fat stranding adjacent to the appendix, which is indeterminate for appendicitis. Chest X-Ray 06/26/23 11:23 IMPRESSION: 1. Small right pleural effusion with minimal right basilar atelectasis. Labs Labs: Laboratory Results - last 24 hr 06/28/23 07:49 WBC 9.7 RBC 4.42 L Hgb 12.9 L Hct 39.9 L MCV 90.3 MCH 29.2 MCHC 32.3 RDW 11.9 Plt Count 249 MPV 9.7 Sodium 134 L Potassium 4.1 Chloride 96 L Carbon Dioxide 28 Anion Gap 10 BUN 10 Creatinine 0.60 L [place]
[2023-06-28] MEDS: carisoprodoL (*CRX) 350 MG TABLET PO ×2 (16:46→20:42)
[2023-06-28] MEDS: HYDROcodone/acetaminophen (*CRX) 7.5-325 MG TABLET 1 TAB PO ×2 (16:49→21:44)
[2023-06-28 20:00] VITALS: O2SAT 98
[2023-06-28] MEDS: IBUPROFEN 600 MG TABLET PO (20:42)
[2023-06-28] MEDS: ERTAPENEM 1 GM/NS 50 ML 1 GM/50 ML BAG IVPB (20:42)
--- NOTE | 2023-06-28 21:09 | PC.NURSE ---
Spoke with Dr. Morejon about patient's pain being uncontrolled and recently changed to PO pain meds. New order received for K-pad and to change norco frequency to Q4H prn.
[2023-06-28 21:20] VITALS: BP 137/74; PULSE 95; RESP 16; TEMP 37; O2SAT 98
[2023-06-29] MEDS: HYDROcodone/acetaminophen (*CRX) 7.5-325 MG TABLET 1 TAB PO (04:30)
[2023-06-29 05:59] VITALS: BP 122/66; PULSE 77; RESP 14; TEMP 36.1; O2SAT 97
[2023-06-29 06:24] LABS: Basophils Percent Auto 0.5 % (0.2-1.2); Eosinophils Absolute Auto 0.2 K/mm3 (0-0.3); Eosinophils Percent Auto 2.4 % (0-4.4); Hematocrit 38.7 % (42.0-52.0); Hemoglobin 12.8 g/dL (14.0-18.0); Immature Granulocyte Absolute 0.03 K/mm3 (0.00-0.031); Immature Granulocyte Percent A 0.4 % (0-0.5); Lymphocytes Absolute Auto 0.74 K/mm3 (0.9-3.2); Lymphocytes Percent Auto 9.9 % (18.3-44.2); Mean Corpuscular HGB Conc 33.1 g/dl (32-36); Mean Corpuscular Hemoglobin 29.6 pg (26-34); Mean Corpuscular Volume 89.4 fl (80-100); Mean Platelet Volume 9.4 fl (7.4-10.4); Monocytes Absolute Auto 0.8 K/mm3 (0.1-0.6); Monocytes Percent Auto 10.1 % (2.6-8.5); Neutrophils Absolute Auto 5.7 K/mm3 (1.3-6.7); Neutrophils Percent Auto 76.7 % (45.5-73.1); Platelet Count Result 245 k/mm3 (150-375); Red Blood Count 4.33 M/mm3 (4.6-6.20); Red Cell Distribution Width 11.7 % (11.5-14.5); White Blood Count 7.5 K/mm3 (4.5-10.0)
[2023-06-29 06:45] LABS: Anion Gap 10 mmol/L (8-16); Blood Urea Nitrogen 11 mg/dL (9-20); Calcium 8.8 mg/dL (8.4-10.2); Carbon Dioxide 31 mmol/L (22-30); Chloride 96 mmol/L (98-107); Estimated CRCL calculation 137 ml/min; Estimated Glomerular Filt Rate > 60; Glucose 103 mg/dL (65-110); Sodium 137 mmol/L (137-145)
[2023-06-29] MEDS: IBUPROFEN 600 MG TABLET PO ×2 (09:06→15:57)
[2023-06-29] MEDS: carisoprodoL (*CRX) 350 MG TABLET PO ×3 (09:08→15:57)
[2023-06-29] MEDS: PSYLLIUM POWDER PACKET 1 PACKET PO (09:11)
--- NOTE | 2023-06-29 11:27 | PCNFU ---
Nutrition Follow-Up Complete: Unintended weight loss related to decreased appetite/not feeling well as evidenced by 5 lb/2% loss x 3 weeks. Goal:1. Diet advancement in the next 3 days. 2. Weight to remain within 2% of current weight 113.6 kg through follow-up. Pt current nutrition is . Nutrition recommendation: Last recorded weight is 109.1 kg. Bowel Motility: +BM 06/27 Labs Reviewed: Hgb:12.8, HCT:28.7, Cr:0.6 Meds Noted: zofran, miralax Skin: WNL Additional Notes: Pt diet advanced to regular yesterday. Will add Ensure compact for supplementation. Monitor intake and tolerance. Monitor intake, wt, labs. Follow up in 3 days.
[2023-06-29] MEDS: ACETAMINOPHEN 500 MG TABLET 1000 MG PO (13:05)
--- NOTE | 2023-06-29 13:58 | PM.IMPN ---
Progress Note: A&P Assessment and Plan (1) Lower abdominal pain: Code(s): R10.30 - Lower abdominal pain, unspecified Status: Acute Assessment and Plan: Likely due to a combination of constipation, no BM for 10 days and a large amount of stool was noted in the colon on CT Analgesics available as needed Resolving with mag citrate, enema and bowel movements. Clinical picture improving and less likely appendix related regular diet as tolerated (2) Low back pain: Qualifiers: Chronicity: acute Back pain laterality: bilateral Sciatica presence: unspecified whether sciatica present Qualified Code(s): M54.50 - Low back pain, unspecified Code(s): M54.50 - Low back pain, unspecified Status: Acute Assessment and Plan: Patient continues to have pain related to recent lumbar muscle strain. He has no radicular symptoms or findings concerning for cord compression. No imaging has been done surrounding injury. Diazepam as needed for pain. He would benefit from PT, consulted today for eval (3) Constipation: Qualifiers: Constipation type: unspecified constipation type Qualified Code(s): K59.00 - Constipation, unspecified Code(s): K59.00 - Constipation, unspecified Status: Resolved Assessment and Plan: Patient now having BM with relief Continue MiraLax, mag citrate and Dulcolax as needed. (4) Pleural effusion, right: Code(s): J90 - Pleural effusion, not elsewhere classified Status: Acute Assessment and Plan: An incidental, small right pleural effusion was noted on CT. Etiology is not entirely clear but he is asymptomatic and the fluid is not large enough to sample. This can be followed as an outpatient with suggested repeat radiographs in the coming weeks. Should he become symptomatic (chest pain, pleuritic pain, shortness a breath, cough, etc.) a chest CT may be beneficial as would diagnostic thoracentesis. Plan Thank you for allowing us to participate in this patient's care. Please do not hesitate to contact us with any questions. Subjective Date/time seen: 06/29/23 13:58 Interval history: Patient is a 42 YO male admitted for lower abdominal pain. He is bring followed by surgery for possible appendicitis although his clinical presentation correlates more with constipation. He reports having more BM since starting the mag citrate, and has felt much relief in the pressure and abdominal pain. He is on a regular diet and tolerating. His main complaint this morning is his back pain wrapping around to his sides. This was present prior to admission and I'm sure laying in bed fairly immobile has not helped. Will consult PT for evaluation. Would likely benefit outpatient. He has not yet had any imaging on his back. He denies numbness or tingling, but pain with lifting of his legs while in lying position. Surgery is maintaining his care, will continue to monitor. Review of Systems Review of Systems: Twelve systems were reviewed and are negative except for as per HPI. Exam Narrative: General: Well-developed, nontoxic-appearing male supine in bed in moderate pain. Weight: 113.6 kg. BMI: 33.0. HEENT: PERRL, EOMI. Sclera anicteric. Oral mucosa moist. Neck: Supple. Respiratory: Lungs are clear to auscultation bilaterally. Cardiovascular: Regular rate and rhythm with S1-S2. Gastrointestinal: Abdomen is soft and nondistended with positive bowel sounds. He is slightly tender to palpation in the right and left sides, still without voluntary guarding or rebound tenderness along his lower abdomen. No CVA tenderness. Spine: No midline vertebral tenderness. He is somewhat tender to palpation over the paraspinous muscles in the lumbar region. Increased pain in his lower back with bilateral leg raise. Skin: Warm and dry. Extremities: No cyanosis, clubbing, or edema. Radial and pedal pulses intact. Neurological: Alert. Cranial ne
[2023-06-29 14:00] VITALS: BP 120/71; PULSE 90; RESP 18; TEMP 36.5; O2SAT 96
--- NOTE | 2023-06-29 15:45 | PM.DS ---
DS: Admitting Diagnosis Discharge Date 06/29/23 Admitting Diagnosis Right lower quadrant pain, low back pain, constipation, right pleural effusion DS: Discharge Diagnosis Discharge Diagnosis (1) Lower abdominal pain: Code(s): R10.30 - Lower abdominal pain, unspecified Status: Acute (2) Low back pain: Qualifiers: Chronicity: acute Back pain laterality: bilateral Sciatica presence: unspecified whether sciatica present Qualified Code(s): M54.50 - Low back pain, unspecified Code(s): M54.50 - Low back pain, unspecified Status: Acute (3) Constipation: Qualifiers: Constipation type: unspecified constipation type Qualified Code(s): K59.00 - Constipation, unspecified Code(s): K59.00 - Constipation, unspecified Status: Resolved (4) Pleural effusion, right: Code(s): J90 - Pleural effusion, not elsewhere classified Status: Acute DS: Summary Hospital Course Reason for hospitalization: Right lower quadrant pain Hospital Course: This is a 42-year-old man who presented to the emergency department with multiple complaints. He was complaining of right lower quadrant pain and low back pain. His symptoms started about 3 weeks ago with low back pain but then over the past few days he has developed some right lower quadrant abdominal pain. He has been experiencing severe constipation as well. Over the last few weeks he is only had a couple bowel movements. His CT showed a dilated appendix at 8 mm and the patient did have a slight elevation of his white blood count. He was admitted for further treatment. He was started on Invanz 1 g IV Q 24 hours. Much of his symptoms appear to be related to the constipation and it seemed less likely that he had appendicitis. He was given MiraLax and a Dulcolax suppository initially but this did not have any significant relief. He was passing some flatus and did feel little better after passing flatus. Hospitalist was consulted to assist with his symptoms of low back pain that had been persisting for several weeks. On 06/27 he was started on a clear liquid diet and was given a half bottle of magnesium citrate. This still was not giving the patient much relief and he was given another Dulcolax suppository and an enema. He eventually did start having some bowel function on 06/28. He was given the 2nd half of the magnesium citrate and this continued to help with evacuating his bowels. He was tolerating the clear liquid diet therefore was advanced as tolerated back to a solid diet. His abdominal pain had essentially resolved but he was still having some back pain. He was given diazepam initially for the back pain and spasm but this was not really helping. This was then transitioned over to carisoprodol and this did appear to offer the patient some relief. An abdominal x-ray was obtained on 06/29 and there did not appear to be any signs of ongoing severe constipation or bowel obstruction. He was started on Metamucil on 06/29 and was doing well with this. His white blood cell count had normalized and he was not having any abdominal pains that would be concerning for appendicitis. Antibiotics were discontinued on discharge. He was discharged on 06/29/2023. Status at Discharge Functional status at discharge: independent ambulation Overall status at discharge: patient is progressing back to baseline Time Spent with Patient Time attestation: Total time spent providing and/or coordinating discharge services: Time spent: Less than 30 minutes Exam Const: General: comfortable, no acute distress and alert Orientation/consciousness: patient oriented x3 Resp: Effort & Inspection: normal respiratory effort Auscultation: clear to auscultation bilaterally Cardio: Rate: regular rate Rhythm: regular rhythm GI: Inspection: non-distended GI Palp: Yes Soft to palpation, No Tenderness to palpation present (GI), No Guarding due to palpation present (GI
== END 2023-06-29 16:15 | disposition home or self-care (01) | DRG 392 ==
LOC: ANHED 22:50 → ANH3MEDSUR 06-26 08:35 → ANH2MED 06-26 09:02 → ANH3MEDSUR 06-26 09:10
PROVIDERS: Nurse Practitioner; Physician Assistant; Student in an Organized Health Care Education/Training Program; Admitting Provider Surgery; Emergency Provider Physician Assistant; Visit Provider Surgery
DX: K59.00 Constipation, unspecified (principal); J90 Pleural effusion, not elsewhere classified; M54.50 Low back pain, unspecified; R10.31 Right lower quadrant pain; Z28.21 Immunization not carried out because of patient refusal
CPT/HCPCS: 36415; 71046; 74019; 74177; 80048; 80053; 81001; 83690; 83735; 84443; 85025; 85027; 85652; 86140; 96361; 96375; 96376; 97161; 99285; A9270; G0378; J1170; J1335; J2270; J2405; J7030; Q9967

== ENCOUNTER 2023-07-13 18:27 | Inpatient (IN) | payer BC, SELFPAY ==
--- NOTE | ~2023-07-13 | CT_ITS ---
CT of the Abdomen and Pelvis, and CT scan of the lumbar spine: Indication: Pain Technique: 2.5 mm axial scans were obtained through the abdomen and pelvis following intravenous adm inistration of 100 cc of Omnipaque 350. Axial imaging of the lumbar spine was also performed, followe d by sagittal and coronal reformatted images. Dose reduction technique was used on this scan by [employer] automated exposure control and iterative reconstruction technique. The dose-length product (DLP) was 948.45 mGy-cm. COMPARISON: 06/25/2023 CT abdomen/pelvis Findings: Scans through the lung bases Stat minimal bilateral pleural effusions with bibasilar atelectatic change. The liver, spleen, pancreas, gallbladder, adrenals and kidneys are within normal limits. No evidence of aortic aneurysm. No lymphadenopathy. No bowel obstruction or bowel wall thickening. No definite evidence for acute appendicitis. Images through the pelvis were performed. Urinary bladder unremarkable. No pelvic mass seen. No ascit es. CT lumbar spine Findings: No acute fracture or subluxation seen. There is a small irregular lucency a t the right superior endplate region of T12 (series 605 image 39, series 604 image 37, series 7 image 19 for example), suggestive of erosion or focally destructive lesion. No other osseous abnormality e vident. Intervertebral disc spaces are relatively well-preserved. At L1-L2, there is no definite disc bulge or herniation. No spinal canal stenosis or definite neural foraminal narrowing. At L2-L3, there is minimal disc bulge. No definite spinal canal stenosis. Probable minimal bilateral neural foraminal narrowing. At L3-L4, there is no disc bulge or herniation. No spinal canal stenosis or neural foraminal narrowin g. At L4-L5, there is broad-based disc protrusion posterocentrally, resulting in mild compression of the thecal sac. There is moderate left neural foraminal narrowing. Right neural foramen preserved. At L5-S1, there is minimal disc bulge. No spinal canal stenosis. There is preservation of the neural foramina. Paravertebral soft tissues are unremarkable. Impression: Focal erosive or destructive lesion at the right superior endplate region of T12. Pre and postcontras t MR recommended to further assess for underlying pathology. Diagnostic considerations could include neoplastic lesion or infectious process. Minimal pleural effusions with bibasilar atelectasis. Case discussed with Dr. Pereira at the time of this reading. Reviewed, dictated and finalized at location M. TER Impression: Focal erosive or destructive lesion at the right superior endplate region of T1 2. Pre and postcontrast MR recommended to further assess for underlying patholo gy. Diagnostic considerations could include neoplastic lesion or infectious pro cess. Minimal pleural effusions with bibasilar atelectasis. Case discussed with Dr. Pereira at the time of this reading.
--- NOTE | ~2023-07-13 | MR_ITS ---
EXAMINATION: MR thoracic spine wo/w con DATE: 07/14/2023 12:25 INDICATION: Back pain. TECHNIQUE: Magnetic resonance imaging (MRI) of the thoracic spine was performed without and with 20 m L MultiHance intravenous contrast. COMPARISON: CT 07/06/2023, 06/25/2023 FINDINGS: There are small pleural effusions. There is 7 degrees dextrocurvature of thoracic spine. Th ere is mild chronic anterior wedging of T5-T10 vertebral bodies. There is mildly decreased disc heigh t at T3-T4, T4-T5, T5-T6, and T11-T12. There is edema-like marrow signal intensity and enhancement in the T11 and T12 vertebral bodies. There is edema and enhancement of the paraspinal soft tissues at t hese levels. At T5-T6, there is a right central protrusion with mild central canal stenosis. At T11-T 12, there is a central protrusion with mild central canal stenosis. There is multilevel facet joint o steoarthritis, severe at multiple levels in upper thoracic spine. There is multilevel mild neural for aminal stenosis bilaterally. On the right, there is moderate neural foraminal stenosis at T2-T3. On t he left, there is moderate neural foraminal stenosis at T2-T3 and T3-T4. The spinal cord signal inten sity is normal. IMPRESSION: 1. Edema-like marrow signal intensity involving T11 and T12 vertebral bodies with acute erosions by C T, consistent with osteomyelitis. 2. Mild thoracic spondylosis. 3. Small pleural effusions. Reviewed, dictated and finalized at location A. R ACCOMPANIST IMPRESSION: 1. Edema-like marrow signal intensity involving T11 and T12 vertebral bodies wi th acute erosions by CT, consistent with osteomyelitis. 2. Mild thoracic spondylosis. 3. Small pleural effusions.
--- NOTE | ~2023-07-13 | MR_ITS ---
EXAMINATION: MR lumbar spine wo/w con DATE: 07/14/2023 12:25 INDICATION: Back pain. TECHNIQUE: Magnetic resonance imaging (MRI) of the lumbar spine was performed without and with 20 mL MultiHance intravenous contrast. COMPARISON: CT 07/06/2023, 06/25/2023 FINDINGS: There are small pleural effusions. Vertebral body heights are normal. There is edema-like m arrow signal intensity in T11 and T12 vertebral bodies. There is mildly decreased disc height at L2-L 3, L4-L5, and L5-S1. The distal spinal cord signal intensity is normal. The conus medullaris is at T1 2-L1. The following disc levels are specifically discussed: L1-L2: There is a central protrusion. There is mild bilateral facet joint osteoarthritis. There is no neural foraminal stenosis. There is mild central canal stenosis. L2-L3: The disc is bulging and has an annular fissure. There is mild bilateral facet joint osteoarthr itis. There is mild bilateral neural foraminal stenosis. There is mild central canal stenosis. L3-L4: The disc does not extend beyond the endplate margin. There is no facet joint osteoarthritis. T here is no neural foraminal stenosis. There is no central canal stenosis. L4-L5: There is a left central extrusion. There is moderate bilateral facet joint osteoarthritis. The re is mild left neural foraminal stenosis. There is mild central canal stenosis. L5-S1: The disc is bulging and has an annular fissure. There is mild bilateral facet joint osteoarthr itis. There is no neural foraminal stenosis. There is mild central canal stenosis. IMPRESSION: 1. Edema-like marrow signal intensity in T11 and T12 vertebral bodies with acute erosions by CT, cons istent with osteomyelitis. 2. Mild lumbar spondylosis. 3. Small pleural effusions. Reviewed, dictated and finalized at location A. ING MACHINE OPERATOR IMPRESSION: 1. Edema-like marrow signal intensity in T11 and T12 vertebral bodies with acut e erosions by CT, consistent with osteomyelitis. 2. Mild lumbar spondylosis. 3. Small pleural effusions.
[2023-07-13 18:44] VITALS: BP 163/90; PULSE 109; RESP 20; TEMP 36.6; O2SAT 98
--- NOTE | 2023-07-13 23:18 | PC.NURSE ---
no answer for vs
[2023-07-14] VITALS (9 sets, daily range): BP systolic 111–152; BP diastolic 69–88; PULSE 57–116; RESP 14–20; TEMP 36.4–37; O2SAT 95–100
[2023-07-14] MEDS: methylPREDNISolone SOD SUCC 125 MG VIAL IV PUSH (02:38)
[2023-07-14] MEDS: KETOROLAC 30 MG/ML VIAL (*BKC) IV PUSH (02:40)
[2023-07-14] MEDS: diazePAM INJ (*CRX) 10 MG/2 ML SYRINGE 2 MG IV PUSH (02:42)
[2023-07-14] MEDS: ACETAMINOPHEN 500 MG TABLET 1000 MG PO (02:42)
[2023-07-14 02:52] LABS: Basophils Absolute Auto 0.1 K/mm3 (0.0-0.1); Basophils Percent Auto 0.5 % (0.2-1.2); Eosinophils Percent Auto 0.4 % (0-4.4); Hematocrit 40.3 % (42.0-52.0); Hemoglobin 12.9 g/dL (14.0-18.0); Immature Granulocyte Absolute 0.04 K/mm3 (0.00-0.031); Immature Granulocyte Percent A 0.4 % (0-0.5); Lymphocytes Absolute Auto 1.97 K/mm3 (0.9-3.2); Lymphocytes Percent Auto 18.5 % (18.3-44.2); Mean Corpuscular Hemoglobin 28.7 pg (26-34); Mean Corpuscular Volume 89.8 fl (80-100); Mean Platelet Volume 9.4 fl (7.4-10.4); Monocytes Percent Auto 9.8 % (2.6-8.5); Neutrophils Absolute Auto 7.5 K/mm3 (1.3-6.7); Neutrophils Percent Auto 70.4 % (45.5-73.1); Platelet Count Result 316 k/mm3 (150-375); Red Blood Count 4.49 M/mm3 (4.6-6.20); Red Cell Distribution Width 12.1 % (11.5-14.5); White Blood Count 10.6 K/mm3 (4.5-10.0)
[2023-07-14 03:02] LABS: Alanine Aminotransferase 76 U/L (6-50); Albumin Level 3.5 g/dL (3.5-5.1); Alkaline Phosphatase 122 U/L (38-126); Anion Gap 8 mmol/L (8-16); Aspartate Amino Transferase 27 U/L (17-59); Bilirubin,Total 0.7 mg/dL (0.2-1.3); Blood Urea Nitrogen 14 mg/dL (9-20); Calcium 8.8 mg/dL (8.4-10.2); Carbon Dioxide 29 mmol/L (22-30); Chloride 99 mmol/L (98-107); Estimated CRCL calculation 136 ml/min; Estimated Glomerular Filt Rate > 60; Glucose 104 mg/dL (65-110); Potassium 4.1 mmol/L (3.4-5.0); Sodium 136 mmol/L (137-145)
--- NOTE | 2023-07-14 03:59 | ED.BACK ---
HPI - Back Pain/Injury General Chief Complaint: Back Pain/Injury <BOOKER Matthew Last Filed: 07/14/23 04:11> Stated Complaint: back pain <BOOKER Matthew Last Filed: 07/14/23 04:11> Time Seen by Provider: 07/14/23 01:34 <BOOKER Matthew Last Filed: 07/14/23 04:11> Source: patient and old records reviewed <BOOKER Matthew Last Filed: 07/14/23 04:11> Mode of arrival: ambulatory <BOOKER Matthew Last Filed: 07/14/23 04:11> Limitations: no limitations <BOOKER Matthew Last Filed: 07/14/23 04:11> History of Present Illness HPI Narrative: Patient is a 42-year-old male who presents to the ED with report of lower back pain. Patient reports he initially injured his back around 1 month ago. He experienced a flare up of the pain 2 weeks ago, at which time he was also experiencing constipation. He was seen in the ED here and imaging showed possible appendicitis. He was admitted here for 4 days, had a bowel regimen performed and began to feel better. He states he was never told anything about his back pain. Pain became worse again over the last several days. Denies any known injury. He has been taking ibuprofen and Tylenol, muscle relaxers at home without significant improvement. Pain across lower back, occasionally radiates across his lower abdomen. Denies fevers, nausea, vomiting, current constipation, bowel or bladder incontinence, saddle anesthesia, weakness in lower extremities. <BOOKER Matthew Last Filed: 07/14/23 04:11> Related Data Home Medications: Home Medications Medication Instructions Recorded Confirmed cetirizine 10 mg tablet (Zyrtec) 10 mg PO DAILY seasonal allergies 06/26/23 06/26/23 <BOOKER Matthew Last Filed: 07/14/23 04:11> Allergies/Adverse Reactions: Allergies Allergy/AdvReac Type Severity Reaction Status Date / Time amoxicillin Allergy Rash Verified 06/25/23 20:20 <Maya Horton PA-C - Last Filed: 07/14/23 04:11> Review of Systems Review of Systems: CONSTITUTIONAL: Denies fever, chills, or sweats. CARDIOVASCULAR: Denies chest pain, palpitations, or edema. RESPIRATORY: Denies cough or dyspnea. GASTROINTESTINAL: See HPI. GENITOURINARY: Denies incontinence, dysuria or hematuria. MUSCULOSKELETAL: See HPI. NEUROLOGIC: Denies headache, numbness, or weakness. <Maya Horton PA-C - Last Filed: 07/14/23 04:11> All systems reviewed & are unremarkable except as noted in HPI and below <Maya Horton PA-C - Last Filed: 07/14/23 04:11> PMF Past Medical History Medical History: Medical History No significant past medical history <Maya Horton PA-C - Last Filed: 07/14/23 04:11> Surgical History Surgical History: Surgical History History of vasectomy <Maya Horton PA-C - Last Filed: 07/14/23 04:11> Family History Family History: Family History Other Family history non-contributory <Maya Horton PA-C - Last Filed: 07/14/23 04:11> Social History Social History: Social History Social History: Surrogate medical decision maker: Code status: Full code. Smoking status: Never smoker Lack of Transportation: No Lack of Food: Never True Current Housing: I Have Housing Concerned About Future Housing: No Difficulty Paying Gas/Electric Bills: No Difficulty Paying for Meds: No Currently Unemployed: No Education: High School Diploma/GED Difficulty w/ Childcare or Family Care: No Spiritual care concerns: No <Maya Horton PA-C - Last Filed: 07/14/23 04:11> Exam Narrative: GENERAL: Mildly uncomf
[2023-07-14] MEDS: MORPHINE SULFATE (*CRX) 4 MG/ML INJ IV PUSH ×5 (06:21→22:25)
--- NOTE | 2023-07-14 07:45 | ADMGEN ---
This patient, Wellington Palomo, was admitted to [facility] Surg Room 310-01. Patient/family oriented to hospital policies and general routines including ID bracelet, bed and alarms, visiting hours, pain management, procedures, bathroom and other care routines, personal items, smoking policy, room service/diet, and visiting hours. Information on how to activate the Rapid Response Team has been discussed. Patient/Family are encouraged to report perceived risks to care and to ask questions if they do not understand what they are told or what they should do.
--- NOTE | 2023-07-14 15:49 | WPDNEUROSGPN ---
Progress Note: A&P Assessment and Plan (1) Osteomyelitis: Code(s): M86.9 - Osteomyelitis, unspecified Status: Acute Plan I was contacted by the ER this morning regarding this patient's return to the ER with back pain for the last couple weeks which was initially felt to be related to appendicitis earlier this month. He was treated with antibiotics, but it was ultimately decided that he did not have appendicitis. He returned overnight with back pain and was admitted to the hospital this morning for MRI. I was then contacted by the patient's provider that the MRI is concerning for osteomyelitis. I have reviewed the MRI and agree that there is enhancement of the vertebral bodies at T11 and T12 with endplate changes concerning for infection. I do not see any epidural abscess or compression of the spinal cord/nerve roots. At this time, I would recommend workup for his osteomyelitis including checking ESR/CRP, blood/urine cultures, IR biopsy of the affected vertebra, and Infectious Disease consult. He does not need any surgical intervention for the osteomyelitis. Given that this disease heavily focuses on the antibiotic/ID management and that there is no Infectious Disease specialist at [facility], I would consider transfer to a facility where he could see this type of specialist and receive the appropriate workup. I would be happy to see him in follow up in clinic in 6-8 weeks with repeat MRI thoracolumbar without/with contrast. He also could be fit for a TLSO brace for comfort if his back pain is not appropriately controlled with medication. Subjective Date/time seen: 07/14/23 15:49 Objective Data Vital Signs Vital Signs: Vital Signs - 24 hr 07/13/23 18:44 07/14/23 00:14 07/14/23 02:51 Temperature 97.8 F Pulse Rate 109 H 83 84 Respiratory Rate 20 18 20 Blood Pressure 163/90 H 140/81 134/80 Pulse Oximetry 98 100 97 Oxygen Delivery 07/14/23 06:26 07/14/23 07:26 07/14/23 07:31 Temperature Pulse Rate 70 84 57 L Respiratory Rate 16 16 16 Blood Pressure 120/75 152/88 H 111/69 Pulse Oximetry 97 98 98 Oxygen Delivery 07/14/23 07:50 07/14/23 08:00 Temperature 97.6 F Pulse Rate 86 Respiratory Rate 20 Blood Pressure 135/72 Pulse Oximetry 100 99 Oxygen Delivery Room Air Intake/Output Intake/Output: Intake & Output 07/11/23 07/12/23 07/13/23 07/14/23 23:59 23:59 23:59 23:59 Intake Total 360 Balance 360 Meds/Results Medications: Active Medications Generic Name Dose Route Start Last Admin Trade Name Freq PRN Reason Stop Dose Admin Morphine Sulfate 4 mg 07/14/23 06:30 07/14/23 15:39 Morphine Sulfate (*Crx) 4 Mg/Ml Inj IV PUSH 4 mg Q2H PRN Administration Pain Rated 7-10 Ondansetron HCl 4 mg 07/14/23 06:30 Ondansetron Inj 4 Mg/2 Ml Vial IV PUSH Q4H PRN Nausea Radiology Results: ITS Impressions Miscellaneous CT Procedure 07/14/23 06:10 Impression: Focal erosive or destructive lesion at the right superior endplate region of T12. Pre and postcontrast MR recommended to further assess for underlying pathology. Diagnostic considerations could include neoplastic lesion or infectious process. Minimal pleural effusions with bibasilar atelectasis. Case discussed with Dr. Pereira at the time of this reading. Lumbar Spine MRI 07/14/23 12:43 IMPRESSION: 1. Edema-like marrow signal intensity in T11 and T12 vertebral bodies with acute erosions by CT, consistent with osteomyelitis. 2. Mild lumbar spondylosis. 3. Small pleural effusions. Thoracic Spine MRI 07/14/23 12:57 IMPRESSION: 1. Edema-like marrow signal intensity involving T11 and T12 vertebral bodies with acute erosions by CT, consistent with osteomyelitis. 2. Mild thoracic spondylosis. 3. Small pleural effusions. Labs Labs: Laboratory Results - last 24 hr 07/14/23 02:48 WBC 10.6 H RBC 4.49 L Hgb 12.9 L Hct 40.3 L MCV 89.8 MCH 28.7 MC
[2023-07-14] MEDS: CEFEPIME 2 GM/NS 50 ML 2 GM/50 ML BAG IVPB (20:08)
[2023-07-14] MEDS: VANCOMYCIN 1,250 MG/NS 250 ML 1,250 MG/250 ML BAG 166.67 MG IVPB ×2 (21:06→22:33)
[2023-07-14] MEDS: HEPARIN SODIUM 5,000 UNITS/ML VIAL 5000 UNITS SUB-Q (21:06)
[2023-07-15] MEDS: MORPHINE SULFATE (*CRX) 4 MG/ML INJ IV PUSH ×3 (01:19→09:10)
[2023-07-15] MEDS: CEFEPIME 2 GM/NS 50 ML 2 GM/50 ML BAG IVPB ×2 (03:28→11:37)
[2023-07-15 04:29] VITALS: BP 131/77; PULSE 78; RESP 14; TEMP 36.8; O2SAT 97
[2023-07-15 06:27] LABS: Basophils Absolute Auto 0.1 K/mm3 (0.0-0.1); Basophils Percent Auto 0.6 % (0.2-1.2); Eosinophils Percent Auto 0.2 % (0-4.4); Hematocrit 40.3 % (42.0-52.0); Hemoglobin 12.7 g/dL (14.0-18.0); Immature Granulocyte Absolute 0.05 K/mm3 (0.00-0.031); Immature Granulocyte Percent A 0.5 % (0-0.5); Lymphocytes Absolute Auto 1.62 K/mm3 (0.9-3.2); Lymphocytes Percent Auto 16.7 % (18.3-44.2); Mean Corpuscular HGB Conc 31.5 g/dl (32-36); Mean Corpuscular Hemoglobin 28.7 pg (26-34); Mean Platelet Volume 9.9 fl (7.4-10.4); Monocytes Absolute Auto 0.8 K/mm3 (0.1-0.6); Monocytes Percent Auto 8.6 % (2.6-8.5); Neutrophils Absolute Auto 7.1 K/mm3 (1.3-6.7); Neutrophils Percent Auto 73.4 % (45.5-73.1); Platelet Count Result 292 k/mm3 (150-375); Red Blood Count 4.43 M/mm3 (4.6-6.20); Red Cell Distribution Width 12.3 % (11.5-14.5); White Blood Count 9.7 K/mm3 (4.5-10.0)
[2023-07-15 06:38] LABS: Anion Gap 8 mmol/L (8-16); Blood Urea Nitrogen 19 mg/dL (9-20); Calcium 9.4 mg/dL (8.4-10.2); Carbon Dioxide 29 mmol/L (22-30); Chloride 100 mmol/L (98-107); Estimated CRCL calculation 136 ml/min; Estimated Glomerular Filt Rate > 60; Glucose 111 mg/dL (65-110); Magnesium 2.2 mg/dL (1.6-2.3); Potassium 4.2 mmol/L (3.4-5.0); Sodium 137 mmol/L (137-145)
--- NOTE | 2023-07-15 07:26 | PM.IMHP ---
H&P: HPI History of Present Illness Date/Time: 07/15/23 07:26 Chief Complaint: back pain Narrative: A pleasant 42M w/ no PMH reports back pain x 1 month. He frequent the gym to lift weights about a month ago and was doing back and chest exercises. The next morning he had unusual lower back pain and spasm. Over time this pain starting to affect his lower abdomen and lower legs in a shooting fashion. on 06/26 he presented to [facility] and was admitted for 4 days, his back pain wasn't investigated deeply because he was constipated and was placed on a bowel regimen. After discharge he did fine for a few weeks but returned on 07/14 because his pain became unremitting. On this representation to the ER CT scan a/p and lumbar spine with subsequent MRI w/ w/o contrast of T and L spine which revealed edema like marrow signal intensity in T11 and T12 vertebral bodies with acute erosions consistent with osteomyelitis (and mild lumbar spondylosis). He denies fever, n/v/d, ongoing constipation, weakness, loss of sensation, incontinence. He denies any MVC or any trauma. Only admits to intermittent and manageable back pain over many years. Pt admitted for further mgmt. Review of Systems Review of Systems: All systems reviewed & are unremarkable except as noted in HPI and below PMFSH Past Medical History Medical History No significant past medical history Surgical History Surgical History History of vasectomy Family History Family History Other Family history non-contributory Social History Social History Social History: Surrogate medical decision maker: Code status: Full code. Smoking status: Never smoker Alcohol intake: never Substance use: never Substance use type: does not use Lack of Transportation: No Lack of Food: Never True Current Housing: I Have Housing Concerned About Future Housing: No Difficulty Paying Gas/Electric Bills: No Difficulty Paying for Meds: No Currently Unemployed: No Education: Associate Degree Difficulty w/ Childcare or Family Care: No Spiritual care concerns: No Meds Home Medications and Allergies Home Medications Medication Instructions Recorded Confirmed Type cetirizine 10 mg tablet (Zyrtec) 10 mg PO DAILY seasonal allergies 06/26/23 07/14/23 History carisoprodol 350 mg tablet 350 mg PO TID #30 tabs 06/29/23 07/14/23 Rx Allergies Allergy/AdvReac Type Severity Reaction Status Date / Time amoxicillin Allergy Rash Verified 07/14/23 07:47 Vital Signs Vital Signs - 24 hr 07/14/23 07:31 07/14/23 07:50 07/14/23 08:00 Temperature 97.6 F Pulse Rate 57 L 86 Respiratory Rate 16 20 Blood Pressure 111/69 135/72 Pulse Oximetry 98 100 99 Oxygen Delivery Room Air 07/14/23 14:00 07/14/23 20:39 07/15/23 04:29 Temperature 97.6 F 98.6 F 98.2 F Pulse Rate 116 H 114 H 78 Respiratory Rate 14 16 14 Blood Pressure 136/73 135/78 131/77 Pulse Oximetry 97 95 97 Oxygen Delivery Exam Const: General: comfortable and no acute distress Eyes: Pupils: Equal, round and reactive pupils present Neck: Neck: supple Resp: Effort & Inspection: normal respiratory effort Auscultation: clear to auscultation bilaterally, no crackles, no rales and no rhonchi Cardio: Rate: regular rate Rhythm: regular rhythm Heart sounds: no gallops, no murmurs and no rubs GI: Inspection: non-distended GI Palp: Yes Soft to palpation and No Tenderness to palpation present (GI) Auscultation: normal bowel sounds : General: Yes bladder normal to palpation Neuro: General: deep tendon reflexes 2+ bilaterally Speech: normal speech Motor exam (neuro): 5/5 motor strength present throughout Sensory Exam: normal sensation Extrem: Gen
[2023-07-15 07:41] LABS: Procalcitonin 0.1 ng/mL
[2023-07-15] MEDS: HEPARIN SODIUM 5,000 UNITS/ML VIAL 5000 UNITS SUB-Q (08:17)
[2023-07-15] MEDS: CYCLOBENZAPRINE HCL 5 MG TABLET PO (11:38)
[2023-07-15] MEDS: DOCUSATE SODIUM 100 MG CAPSULE PO (11:38)
[2023-07-15] MEDS: MORPHINE SULFATE (*CRX) 4 MG/ML INJ 6 MG IV PUSH ×3 (11:38→17:48)
[2023-07-15 13:50] VITALS: O2SAT 95
[2023-07-15 14:00] VITALS: BP 124/75; PULSE 89; RESP 16; TEMP 37.4; O2SAT 98
[2023-07-15 16:00] VITALS: PULSE 76
--- NOTE | 2023-07-16 07:54 | P.TS_ITS ---
Transfer Discharge Sum: Prov Provider Date of admission: 07/15/23 09:06 Primary care physician: Sylvie Kurtz, TABLE WORKER PACKAGER Admitting clinician: Mirtha Morejon DO Attending physician on admission: Mirtha Morejon Consults: 07/14/23 06:31 Consult to Physician Routine Comment: Consulting Provider: Patti Dickey Reason for consultation: back pain, lytic lesion on CT scan Has provider been notified: Yes Attending physician on discharge: Liz Rodriguez Discharging clinician: Liz Rodriguez Anticipated date of transfer: 07/15/23 Receiving physician/facility: [facility] accepted by Dr. Rogel DS: Admitting Diagnosis Discharge Date 07/15/23 Admitting Diagnosis back pain DS: Discharge Diagnosis Discharge Diagnosis (1) Osteomyelitis: Code(s): M86.9 - Osteomyelitis, unspecified Status: Acute (2) Low back pain: Qualifiers: Chronicity: acute Back pain laterality: bilateral Sciatica presence: unspecified whether sciatica present Qualified Code(s): M54.50 - Low back pain, unspecified Code(s): M54.50 - Low back pain, unspecified Status: Acute Transfer Discharge Sum: Med Medications Active and Home Medications: Home Medications cetirizine 10 mg tablet (Zyrtec) 10 mg PO DAILY seasonal allergies 06/26/23 [History Confirmed 07/14/23] carisoprodol 350 mg tablet 350 mg PO TID #30 tabs 06/29/23 [Rx Confirmed 07/14/23] Transfer Discharge Sum: Hosp Hospital Course Hospital course: 42 w/ no PMH presented with back pain x 1 month. He was found to have vertebral osteomyelitis of T11-T12 by way of MRI T-L spine w/wo contrast. Due to not having IR or ID consultations at [facility], the patient was transferred to [facility], accepted by Dr. Rogel. He was transferred in stable condition on 07/15. on 07/14 broad spectrum cefepime and vancomycin were administered and on 07/15 his leukocytosis resolved. Time Spent with Patient Time attestation: Total time spent providing and/or coordinating transfer services: Exam Const: General: cooperative and no acute distress Resp: Effort & Inspection: normal respiratory effort Auscultation: clear to auscultation bilaterally Cardio: Rate: regular rate Rhythm: regular rhythm Heart sounds: S1 normal heart sound present and S2 normal heart sound present GI: GI Palp: No abdominal tenderness Auscultation: normal bowel sounds DS: Data Data Completed and Pending Labs on day of discharge: Preliminary micro results at discharge 07/14/23 18:41 Blood Culture - Preliminary Blood Gram positive cocci cluster is 07/14/23 18:34 Blood Culture - Preliminary Blood
== END 2023-07-15 19:12 | disposition short-term general hospital (02) | DRG 541 ==
LOC: ANHED 07-14 06:29 → ANH3MEDSUR 07-14 07:26
PROVIDERS: Physician Assistant; Admitting Provider Internal Medicine; Emergency Provider Emergency Medicine; PCP Nurse Practitioner Family; Visit Provider General Practice
DX: M46.24 Osteomyelitis of vertebra, thoracic region (principal); K59.00 Constipation, unspecified; M54.50 Low back pain, unspecified
CPT/HCPCS: 36415; 72132; 72157; 72158; 74177; 80048; 80053; 83735; 84145; 85025; 87040; 87086; 87147; 87181; 87186; 96374; 96375; 96376; 99285; A9270; A9577; G0378; J0692; J1644; J1885; J2270; J2930; J3360; J3370; Q9967